=== PATIENT | male | born 1990 | race Two or more races ===

== ENCOUNTER 2021-10-12 12:45 | Emergency (ER) | payer MEDICAID ==
[~2021-10-12] VITALS: Ht 185.4 cm; Wt 91.0 kg
[2021-10-12 16:41] LABS: CLARITY URINE CLOUDY (CLEAR); COLOR URINE YELLOW (YELLOW); KETONES URINE TRACE (NEGATIVE); LEUKOCYTE ESTERASE URINE 3+ (NEGATIVE); NITRITE URINE NEGATIVE (NEGATIVE); OCCULT BLOOD URINE TRACE (NEGATIVE); PROTEIN URINE 1+ (NEGATIVE); SPECIFIC GRAVITY URINE 1.028 (1.005-1.030); UROBILINOGEN URINE 0.2 E.U./dL (0.2-1.0)
[2021-10-12] MEDS ORDERED: CEFTRIAXONE SODIUM 500 MG/VIAL IM ONE (16:45)
[2021-10-12] MEDS ORDERED: LIDOCAINE HCL 1% 20ML VIAL (Pyxis) INJ INFIL ONE (16:45)
[2021-10-12] MEDS ORDERED: LIDOCAINE HCL 1% 10 MG/ML 10ML VIAL INJ ONE (17:15)
[2021-10-12] MEDS ORDERED: DOCU-150 MT (17:21)
[2021-10-12] MEDS ORDERED: DOXY-326 PO (17:21)
[2021-10-12] MEDS ORDERED: NAPR-681 PO (17:21)
[2021-10-12 17:32] VITALS: BP 113/64
== END 2021-10-12 17:33 | disposition home or self-care (01) ==
LOC: ER 12:45
DX: A54.01 Gonococcal cystitis and urethritis, unspecified (principal); K64.9 Unspecified hemorrhoids; Z79.899 Other long term (current) drug therapy
CPT/HCPCS: 81003; 87086; 99283; J0696; J3490